=== PATIENT | female | born 1985 | race Caucasian/White ===

== ENCOUNTER 2018-10-05 13:27 | Emergency (ER) | payer MEDICAID, OTHER ==
[~2018-10-05] VITALS: Ht 162.6 cm; Wt 91.0 kg
[2018-10-05] MEDS ORDERED: IBUPROFEN 600MG TABLET PO ONE (17:30)
[2018-10-05] MEDS ORDERED: PROMETHAZINE/DEXTROMETHORPHAN 6.25-15MG/5ML BOTTLE 120ML PO PRN (17:30)
[2018-10-05 19:10] VITALS: BP 168/91
== END 2018-10-05 19:10 | disposition home or self-care (01) ==
LOC: ER 13:27
DX: B34.9 Viral infection, unspecified (principal); J45.909 Unspecified asthma, uncomplicated; J98.11 Atelectasis; Z91.018 Allergy to other foods
CPT/HCPCS: 71045; 81025; 99283